=== PATIENT | male | born 1965 | race Caucasian/White ===

== ENCOUNTER 2017-09-11 05:44 | Emergency (ER) | payer OTHER ==
[~2017-09-11] VITALS: Ht 175.3 cm; Wt 77.9 kg
[2017-09-11 05:47] VITALS: TEMP 36.5; Ht 175.3 cm; Wt 77.9 kg
[2017-09-11] MEDS ORDERED: ATOR-24 PO (05:57)
--- NOTE | 2017-09-11 06:37 | EMERGENCY ROOM VISIT NOTE ---
History Report prepared by Jessica: Natalia Foster Under the Supervision of: Dr. Belem Casanova D.O. First contact with patient: 05:59 Chief Complaint: CHEST PAIN Stated Complaint: CHEST PAIN,NAUSEA,SHARP BACK PAIN Nursing Triage Summary: Pt reports chest pain on and off for several months. Last night patient reports stabbing chest pain that is now under the right rib cage. Pt also reports at that time numbness in the right arm. Pt also reports nausea. History of Present Illness The patient is a 51 year old male who presents to the Emergency Room with complaints of intermittent episodes of chest tension beginning 6 months ago. The patient notes that his episodes of chest tightness last about 30 minutes to an hour in length. He states that over the past week these episodes have become more frequent and have been lasting for longer periods of time. Last night, the patient had an episode of chest tightness that lasted about 4 hours. During that episode he also had pain in his right shoulder blade, nausea, and cold sweats but denies any vomiting. He notes his pain yesterday worsened when he was breathing. Last night the patient ate ribs. He notes increased pain with eating fatty foods over the past six months. The patient states that this morning he had another episode where his right arm became numb and his chest was so tight he felt like he couldn't move. Presently, the patient's tightness is under his right rib cage. He has a family history of gall stones and cholecystectomy. They have no cardiac history. Source of History: patient Onset: 6 months ago Position: chest (right) Quality: other (tightness) Timing: intermittent Modifying Factors (Worsening): breathing Associated Symptoms: + diaphoresis, + nausea, No vomiting Review of Systems See HPI for pertinent positives & negatives. A total of 10 systems reviewed and were otherwise negative. Past Medical & Surgical Medical Problems: (1) No Known Active Medical Problems Family History FH: cholecystectomy FH: gallstones Social History Smoking Status: Never Smoker Drug Use: none Housing Status: lives with family Occupation Status: employed Current/Historical Medications Scheduled Atorvastatin (Lipitor), 40 MG PO DAILY Allergies Coded Allergies: No Known Allergies (Unverified , 09/11/17) Physical Exam Vital Signs Date Time Temp Pulse Resp B/P (MAP) Pulse Ox O2 Delivery O2 Flow Rate FiO2 09/11/17 07:05 55 16 121/81 95 Room Air 09/11/17 05:55 68 09/11/17 05:51 Room Air 09/11/17 05:47 36.5 71 18 134/87 94 Room Air Physical Exam HEENT: Head - normocephalic and atraumatic Pupils are equal, round, and reactive to light. Extraocular eye muscles are intact, and sclera are anicteric. Nose - moist nasal mucosa without discharge. Mouth - moist buccal mucosa. Oropharynx is nonerythematous and there is no tonsillar exudate or edema noted. Neck: Supple; no JVD, nuchal rigidity, cervical lymphadenopathy. Heart: Regular rate and rhythm. There is a normal S1 and S2 with no murmurs, clicks, or gallops appreciated. Lungs: Clear to auscultation bilaterally with no wheezes, rales, or rhonchi. Abdomen: Severe reproducible pain over right upper quadrant. There is no hepatomegaly. There is no guarding or rebound. Extremities: No evidence of cyanosis, clubbing, or edema. There are easily palpable peripheral pulses. Skin: warm and dry with good turgor and no rashes. Medical Decision & Procedures ER Provider Diagnostic Interpretation: ABDOMINAL ULTRASOUND, RIGHT UPPER QUADRANT HISTORY: Right upper quadrant pain. eval for gallbladder disease. COMPARISON: None. FINDINGS: Pancreas: The pancreas demonstrates a normal echotexture. Liver: Unremarkable. Gallbladder: No gallbladder wall thickening. No gallstones. CBD: 5 mm. Right kidney: No hydronephrosis. IMPRESSION: No significant abnormality identified within the right upper quadrant. Laboratory Results 09/11/17 05:55 Red Blood Count 4.55, Mean Corpuscular Volume 90.3, Mean Corpuscular Hemoglobin 31.2, Mean Corpuscular Hemoglobin Concent 34.5, Mean Platelet Volume 9.3, Neutrophils (%) (Auto) 46.6, Lymphocytes (%) (Auto) 40.4, Monocytes (%) (Auto) 9.9, Eosinophils (%) (Auto) 2.3, Basophils (%) (Auto) 0.4, Neutrophils # (Auto) 2.63, Lymphocytes # (Auto) 2.28, Monocytes # (Auto) 0.56, Eosinophils # (Auto) 0.13, Basophils # (Auto) 0.02 09/11/17 05:55 Test 09/11/17 05:55 09/11/17 08:00 White Blood Count 5.64 K/uL (4.8-10.8) Red Blood Count 4.55 M/uL (4.7-6.1) Hemoglobin 14.2 g/dL (14.0-18.0) Hematocrit 41.1 % (42-52) Mean Corpuscular Volume 90.3 fL (80-100) Mean Corpuscular Hemoglobin 31.2 pg (25-34) Mean Corpuscular Hemoglobin Concent 34.5 g/dl (32-36) Platelet Count 218 K/uL (130-400) Mean Platelet Volume 9.3 fL (7.4-10.4) Neutrophils (%) (Auto) 46.6 % Lymphocytes (%) (Auto) 40.4 % Monocytes (%) (Auto) 9.9 % Eosinophils (%) (Auto) 2.3 % Basophils (%) (Auto) 0.4 % Neutrophils # (Auto) 2.63 K/uL (1.4-6.5) Lymphocytes # (Auto) 2.28 K/uL (1.2-3.4) Monocytes # (Auto) 0.56 K/uL (0.11-0.59) Eosinophils # (Auto) 0.13 K/uL (0-0.5) Basophils # (Auto) 0.02 K/uL (0-0.2) RDW Standard Deviation 42.7 fL (36.4-46.3) RDW Coefficient of Variation 13.1 % (11.5-14.5) Immature Granulocyte % (Auto) 0.4 % Immature Granulocyte # (Auto) 0.02 K/uL (0.00-0.02) Anion Gap 11.0 mmol/L (3-11) Est Creatinine Clear Calc Drug Dose 67.5 ml/min Estimated GFR () 74.1 Estimated GFR (Non- 63.9 BUN/Creatinine Ratio 17.9 (10-20) Calcium Level 8.7 mg/dl (8.5-10.1) Total Bilirubin 0.7 mg/dl (0.2-1) Direct Bilirubin 0.2 mg/dl (0-0.2) Aspartate Amino Transf (AST/SGOT) 29 U/L (15-37) Alanine Aminotransferase (ALT/SGPT) 50 U/L (12-78) Alkaline Phosphatase 92 U/L (45-117) Total Protein 7.2 gm/dl (6.4-8.2) Albumin 4.3 gm/dl (3.4-5.0) Lipase 341 U/L (73-393) Bedside Troponin I < 0.030 ng/ml (0-0.045) Laboratory results per my review. ECG Indication: chest pain Rate (beats per minute): 60 Rhythm: normal sinus Findings: PVC, no acute ischemic change ED Course 608: Past medical records reviewed. The patient was evaluated in room A3. A complete history and physical exam was performed. An IV lock was initiated and labs are drawn as above. A 12-lead EKG was obtained as described above. The patient went for ultrasound of the right upper quadrant as described above. Upon returning from radiology, I discussed the results of the ultrasound and laboratory studies with the patient. We did perform a [id number] troponin which was unremarkable. We talked about the possible causes of his discomfort and he related to me that as he thought more about these episodes, they seem to be related to food, especially fatty foods. He wonders if this could be GERD. I suggested that he consider taking Zantac twice a day for the next week to see if that makes a difference. We talked about the possibility of an aortic dissection is chest. He has no elevated blood pressures as of recently. He states that the symptoms resolve quite quickly. As the patient to follow-up with the [facility] and to use Zantac routinely. He was told to return to the emergency Department felt and the symptoms became persistent. Medical Decision The patient is a 51 year old male who presents to the Emergency Room with complaints of intermittent episodes of chest tension beginning 6 months ago. Differential diagnosis includes: cholecystitis, pancreatitis, aortic dissection , acute coronary syndrome. Lab results show: BUN 23, creatinine 1.28, glucose 105, LFTs are normal, lipase 341, no leukocytosis, stable H&H The patient describes episodes of chest discomfort/tension that occur intermittently. He describes them happening over the past 6 months. Initially , the symptoms were approximately weekly basis but then became more frequent. On physical exam today, the patient has exquisite discomfort with palpation over the right upper quadrant of the abdomen and up underneath the ribs on the right. The patient has no evidence of ischemia on his EKG. Troponin was negative. Right upper quadrant ultrasound shows no evidence of acute cholecystitis. Impression Primary Impression: GERD (gastroesophageal reflux disease) Additional Impression: Right upper quadrant abdominal pain Scribe Attestation The scribe's documentation has been prepared under my direction and personally reviewed by me in its entirety. I confirm that the note above accurately reflects all work, treatment, procedures, and medical decision making performed by me. Departure Information Referrals No Doctor, Assigned (PCP) Patient Instructions My [facility] Problem Qualifiers Primary Impression: GERD (gastroesophageal reflux disease) Esophagitis presence: with esophagitis Qualified Codes: K21.0 - Gastro- esophageal reflux disease with esophagitis
[2017-09-11 06:43] LABS: BASO % 0.4 %; BASO ABS # 0.02 K/uL (0-0.2); COMPLETE YES; EOS % 2.3 %; HEMATOCRIT 41.1 % (42-52); IG% 0.4 %; LYMPH % 40.4 %; LYMPH ABS # 2.28 K/uL (1.2-3.4); MEAN CELL VOLUME 90.3 fL (80-100); MEAN CORPUSCULAR HEMOGLOBIN 31.2 pg (25-34); MEAN CORPUSCULAR HGB CONC 34.5 g/dl (32-36); MEAN PLATELET VOLUME 9.3 fL (7.4-10.4); MONO % 9.9 %; NEUT % 46.6 %; PLATELET COUNT 218 K/uL (130-400); RED BLOOD COUNT 4.55 M/uL (4.7-6.1); WHITE BLOOD COUNT 5.64 K/uL (4.8-10.8)
[2017-09-11 06:51] LABS: BUN/CREATININE RATIO 17.9 (10-20); CALCIUM 8.7 mg/dl (8.5-10.1); CREATININE 1.28 mg/dl (0.60-1.40); POTASSIUM 3.8 mmol/L (3.5-5.1)
--- NOTE | 2017-09-11 07:46 | DIAGNOSTIC IMAGING REPORT ---
ABDOMINAL ULTRASOUND, RIGHT UPPER QUADRANT HISTORY: Right upper quadrant pain. eval for gallbladder disease. COMPARISON: None. FINDINGS: Pancreas: The pancreas demonstrates a normal echotexture. Liver: Unremarkable. Gallbladder: No gallbladder wall thickening. No gallstones. CBD: 5 mm. Right kidney: No hydronephrosis. IMPRESSION: No significant abnormality identified within the right upper quadrant. Electronically signed by: Conner Collins M.D. 09/11/2017 7:45 AM Dictated Date/Time: 09/11/2017 7:43 AM
[2017-09-11 08:27] VITALS: BP 146/71; PULSE 67; O2SAT 94
== END 2017-09-11 08:27 | disposition home or self-care (01) ==
LOC: C.EDB 05:45 → C.EDA 08:27
DX: K21.0 Gastro-esophageal reflux disease with esophagitis (principal); R10.11 Right upper quadrant pain; I49.3 Ventricular premature depolarization; Z79.899 Other long term (current) drug therapy; Z87.19 Personal history of other diseases of the digestive system